=== PATIENT | female | born 1990 | race Caucasian/White ===

== ENCOUNTER 2017-05-22 09:43 | Inpatient (IN) ==
[2017-05-22] MEDS ORDERED: REGLAN PO ONE (22:28)
[2017-05-22] MEDS ORDERED: LR 1,000 ML IV ONE (22:28)
[2017-05-22] MEDS ORDERED: TYLENOL PO PRN (22:28)
[2017-05-22] MEDS ORDERED: AMBIEN PO PRN (22:28)
[2017-05-22] MEDS ORDERED: ZOFRAN IV PRN (22:28)
[2017-05-22] MEDS ORDERED: BRETHINE SUBQ PRN (22:28)
[2017-05-22] MEDS ORDERED: STADOL IV PRN ×2 (22:28)
[2017-05-22] MEDS ORDERED: KEFZOL 1 GM/D5W 1 GM/50 ML IVPB IV PRN (22:28)
[2017-05-22] MEDS ORDERED: PEPCID IV PRN (22:28)
[2017-05-22] MEDS ORDERED: PEPCID PO ONE (22:28)
[2017-05-22] MEDS ORDERED: PEPCID PO PRN (22:28)
[2017-05-22] MEDS ORDERED: SODIUM CHLORIDE 0.9% INJ PRN (22:34)
[2017-05-22] MEDS ORDERED: PHENERGAN IV PRN (22:34)
[2017-05-22] MEDS ORDERED: LR 4,000 ML ONE (22:43)
[2017-05-22] MEDS ORDERED: AMPICILLIN 2 GM/NS 2 GM/100 ML IVPB IV ONE (23:30)
[2017-05-22] MEDS: STADOL IV PRN (23:48)
[2017-05-23 00:16] LABS: MANUAL DIFF NEEDED? NO
[2017-05-23 00:23] LABS: BASO% 0.1 % (0.0-0.8); EOS# 0.17 X1000 (0.0-0.7); EOS% 0.9 % (0.0-10.0); HEMATOCRIT 31.5 % (37.0-47.0); HEMOGLOBIN 10.4 g/dL (12.0-16.0); IMM GRAN# 0.09 X1000 (0.0-0.04); IMM GRAN% 0.5 % (0.0-0.5); LYMPH# 2.03 X1000 (1.2-3.4); LYMPH% 10.9 % (20.5-51.1); MCH 27.6 PG (27-31); MCV 83.6 FL (81-99); MONO# 0.92 X1000 (0.11-0.59); MPV 9.6 FL (7.4-10.4); NEUT% 82.6 % (42.2-75.2); PLT 224 X1000 (130-400); RBC 3.77 XMIL (4.2-5.4)
[2017-05-23 00:30] LABS: URINE SOURCE VOIDED
[2017-05-23 00:39] LABS: BILIRUBIN URINE NEGATIVE (NEGATIVE); BLOOD URINE TRACE (NEGATIVE); CLARITY HAZY (CLEAR); COLOR ORANGE; GLUCOSE URINE NEGATIVE (NEGATIVE); LEUKOCYTES URINE 1+ (NEGATIVE); NITRITE URINE NEGATIVE (NEGATIVE); PROTEIN URINE TRACE mg/dL (NEGATIVE); SP GRAVITY URINE 1.025; UR AMPHETAMINES QUAL NONE DETECTED (NONE DETECT); UR BARBITUATES QUAL NONE DETECTED (NONE DETECT); UR BENZODIAZEPIN QUAL NONE DETECTED (NONE DETECT); UR CANNABINOIDS QUAL NONE DETECTED (NONE DETECT); UR COCAINE QUAL NONE DETECTED (NONE DETECT); UR MDMA QUAL NONE DETECTED (NONE DETECT); UR METHADONE QUAL NONE DETECTED (NONE DETECT); UR METHAMPHETAMINE QUAL NONE DETECTED (NONE DETECT); UR OPIATES QUAL NONE DETECTED (NONE DETECT); UR OXYCODONE QUAL NONE DETECTED (NONE DETECT); UR PCP QUAL NONE DETECTED (NONE DETECT); UR TCA QUAL NONE DETECTED (NONE DETECT); UROBILINOGEN URINE 1+(1 mg/dL)
[2017-05-23] MEDS ORDERED: CYTOTEC PO ONE (02:00)
[2017-05-23] MEDS: AMPICILLIN 1 GM/NS 1 GM/50 ML IVPB IV SCH ×3 (03:30→11:15)
[2017-05-23] MEDS: STADOL IV PRN ×2 (04:46→07:20)
[2017-05-23] MEDS ORDERED: FENTANYL-BUPIV-NS 2 MCG-0.1% 200 ML EPIDURAL PRN (06:16)
[2017-05-23] MEDS ORDERED: PITOCIN 30 UNITS/LR 30 UNITS/500 ML IV.SOLN IV SCH ×2 (07:00)
[2017-05-23] MEDS ORDERED: XYLOCAINE-MPF 1% INJ ONE (08:06)
[2017-05-23] MEDS ORDERED: MINERAL OIL PO ONE (08:06)
[2017-05-23] MEDS ORDERED: MINERAL OIL PO PRN (11:53)
[2017-05-23] MEDS ORDERED: BENADRYL IV PRN (11:53)
[2017-05-23] MEDS ORDERED: NORCO-5 PO PRN (11:53)
[2017-05-23] MEDS ORDERED: HYDROXYZINE IM PRN (11:53)
[2017-05-23] MEDS ORDERED: PITOCIN IM PRN (11:53)
[2017-05-23] MEDS ORDERED: M-M-R II VACCINE SUBQ ONE (11:53)
[2017-05-23] MEDS ORDERED: CYTOTEC PO PRN (11:53)
[2017-05-23] MEDS ORDERED: PERI MEDS (DERMOPLAST/NUPERCAINAL/TUCKS) MISC PRN (11:53)
[2017-05-23] MEDS ORDERED: BENADRYL PO PRN (11:53)
[2017-05-23] MEDS ORDERED: BOOSTRIX VACCINE IM ONE (11:53)
[2017-05-23] MEDS ORDERED: HYDROXYZINE PO PRN (11:53)
[2017-05-23] MEDS ORDERED: XYLOCAINE-MPF 1% INJ PRN (11:53)
[2017-05-23] MEDS ORDERED: PITOCIN 30 UNITS/LR 30 UNITS/500 ML IV.SOLN IV ONE (11:53)
[2017-05-23] MEDS: PITOCIN 20 UNITS/LR 20 UNITS/1,000 ML IV.SOLN IV SCH ×2 (12:40→13:10)
[2017-05-23] MEDS: MOTRIN PO PRN ×2 (14:41→22:57)
[2017-05-23] MEDS: NORCO-10 PO PRN ×2 (14:41→22:57)
--- NOTE | 2017-05-23 16:38 | OPERATIVE NOTE ---
PROCEDURE DATE: DESCRIPTION OF PROCEDURE: Patient underwent sterile controlled spontaneous vaginal delivery of a viable female weighing 6 pounds 6 ounces. Apgars currently unavailable. No nuchal, no dystocia. Cord doubly clamped and cut. handed off to the waiting pediatric staff. Placenta delivered spontaneously and intact. Uterus, cervix and vagina explored. A left labial laceration repaired with 3-0 chromic in the usual fashion. Uterus firm with pitocin and massage. Hemostasis noted. ESTIMATED BLOOD LOSS: 200 mL. COMPLICATIONS: None. cc: Radha Mann MD MTD
[2017-05-23] MEDS: PERICOLACE PO SCH (20:11)
[2017-05-23] MEDS: AMBIEN PO PRN (22:57)
[2017-05-24] MEDS: AMPICILLIN 1 GM/NS 1 GM/50 ML IVPB IV SCH ×2 (00:01)
[2017-05-24 06:52] LABS: HEMATOCRIT 28.6 % (37.0-47.0); HEMOGLOBIN 9.1 g/dL (12.0-16.0); MCHC 31.8 g/dL (33-37); MCV 84.9 FL (81-99); MPV 9.6 FL (7.4-10.4); RBC 3.37 XMIL (4.2-5.4)
[2017-05-24] MEDS: NORCO-10 PO PRN ×4 (07:09→23:18)
[2017-05-24] MEDS: MOTRIN PO PRN ×2 (07:09→18:34)
[2017-05-24] MEDS: PERICOLACE PO SCH (20:29)
[2017-05-24] MEDS: AMBIEN PO PRN (23:19)
[2017-05-25] MEDS: MOTRIN PO PRN ×2 (04:34→12:01)
[2017-05-25] MEDS: NORCO-10 PO PRN (04:35)
[2017-05-25 11:59] VITALS: BP 117/72
== END 2017-05-25 13:20 | disposition home or self-care (01) ==
LOC: P.LD 22:00 → P.WC 05-23 12:46
PROVIDERS: ADMIT Obstetrics & Gynecology; ATTEND Obstetrics & Gynecology